=== PATIENT | female | born 1970 | race Hispanic/Latino ===

== ENCOUNTER 2021-05-07 13:25 | Outpatient (CLI) | payer OTHER | END 2021-05-07 13:26 | disposition home or self-care (01) | LOC: CSHULT 13:25 | PROVIDERS: ATTEND Family Medicine | DX: M79.89 Other specified soft tissue disorders (principal); M79.18 Myalgia, other site | CPT/HCPCS: 76999 ==

== ENCOUNTER 2023-05-11 06:07 | Day surgery (SDC) | payer OTHER ==
[2023-05-10 12:51] VITALS: BMI 28.3
[2023-05-11] MEDS ORDERED: PROPOFOL 40 ML ONE (08:27)
[2023-05-11] MEDS ORDERED: Glycopyrrolate 0.2 MG/ML 5 ML SYRINGE ONE (09:13)
[2023-05-11] MEDS ORDERED: PROPOFOL 20 ML ONE (09:32)
== END 2023-05-11 10:31 | disposition home or self-care (01) ==
LOC: CSHSDC 06:07
PROVIDERS: ATTEND Internal Medicine Gastroenterology
PROC: 0DB98ZX Excision of Duodenum, Via Natural or Artificial Opening Endoscopic, Diagnostic (ICD-10-PCS; principal; 2023-05-11)
PROC: 0DBN8ZZ Excision of Sigmoid Colon, Via Natural or Artificial Opening Endoscopic (ICD-10-PCS; principal; 2023-05-11)
DX: D12.5 Benign neoplasm of sigmoid colon (principal); K64.8 Other hemorrhoids; D50.0 Iron deficiency anemia secondary to blood loss (chronic); I10 Essential (primary) hypertension; J45.909 Unspecified asthma, uncomplicated; F32.A Depression, unspecified; F41.9 Anxiety disorder, unspecified; Z79.899 Other long term (current) drug therapy; Z91.013 Allergy to seafood; Z91.018 Allergy to other foods
CPT/HCPCS: 88305; J2704